=== PATIENT | male | born 1960 | race Caucasian/White ===

== ENCOUNTER 2017-11-24 06:32 | Day surgery (SDC) | payer MEDICARE ==
[~2017-11-24] VITALS: Ht 172.7 cm; Wt 63.5 kg
[~2017-11-24 06:32] MED LIST: EQL IBUPROFEN200 MG PO; FLEXERIL PO; PROMETHAZINE HC50 MG PO; TRAMADOL HCL50 MG PO; TYLENOL 500MG TAB PO; ZESTRIL10 M1 PO
[2017-11-24 07:58] VITALS: BP 127/78
[2017-11-24] MEDS ORDERED: TRAMADOL HCL50 MG PO (08:22)
== END 2017-11-24 09:07 | disposition home or self-care (01) ==
LOC: ORM 06:32
PROVIDERS: ATTEND Anesthesiology Pain Medicine
PROC: 3E0T3BZ Introduction of Anesthetic Agent into Peripheral Nerves and Plexi, Percutaneous Approach (ICD-10-PCS; principal; 2017-11-24)
PROC: 3E0T33Z Introduction of Anti-inflammatory into Peripheral Nerves and Plexi, Percutaneous Approach (ICD-10-PCS; 2017-11-24)
PROC: BR141ZZ Fluoroscopy of Cervical Facet Joint(s) using Low Osmolar Contrast (ICD-10-PCS; 2017-11-24)
DX: M54.2 Cervicalgia (principal); M47.812 Spondylosis without myelopathy or radiculopathy, cervical region

== ENCOUNTER 2017-12-08 07:45 | Day surgery (SDC) | payer MEDICARE ==
[~2017-12-08] VITALS: Ht 172.7 cm; Wt 63.5 kg
[2017-12-08 10:24] VITALS: BP 152/88
== END 2017-12-08 09:15 | disposition home or self-care (01) ==
LOC: ORM 07:45
PROVIDERS: ATTEND Anesthesiology Pain Medicine
PROC: 3E0T33Z Introduction of Anti-inflammatory into Peripheral Nerves and Plexi, Percutaneous Approach (ICD-10-PCS; principal; 2017-12-08)
PROC: 3E0T3BZ Introduction of Anesthetic Agent into Peripheral Nerves and Plexi, Percutaneous Approach (ICD-10-PCS; 2017-12-08)
PROC: BR141ZZ Fluoroscopy of Cervical Facet Joint(s) using Low Osmolar Contrast (ICD-10-PCS; 2017-12-08)
DX: M54.2 Cervicalgia (principal); M47.812 Spondylosis without myelopathy or radiculopathy, cervical region

== ENCOUNTER 2018-02-02 08:51 | Day surgery (SDC) | payer MEDICARE ==
[~2018-02-02] VITALS: Ht 172.7 cm; Wt 61.2 kg
[2018-02-02 10:54] VITALS: BP 117/75
[2018-02-15] MEDS ORDERED: IMITREX100 M1 PO (10:09)
[2018-02-15] MEDS ORDERED: ELAVIL (10:09)
[2018-02-15] MEDS ORDERED: MAGNESIUM400 M1 (10:10)
[2018-02-15] MEDS ORDERED: EQL IBUPROFEN200 M1 PO (10:38)
[2018-02-15] MEDS ORDERED: FLEXERIL PO (10:40)
[2018-02-15] MEDS ORDERED: PROMETHAZINE50 MG PO (10:41)
== END 2018-02-02 10:35 | disposition home or self-care (01) ==
LOC: ORM 08:51
PROVIDERS: ATTEND Anesthesiology Pain Medicine
PROC: 3E0T33Z Introduction of Anti-inflammatory into Peripheral Nerves and Plexi, Percutaneous Approach (ICD-10-PCS; principal; 2018-02-02)
PROC: 3E0T3BZ Introduction of Anesthetic Agent into Peripheral Nerves and Plexi, Percutaneous Approach (ICD-10-PCS; 2018-02-02)
PROC: BR161ZZ Fluoroscopy of Lumbar Facet Joint(s) using Low Osmolar Contrast (ICD-10-PCS; 2018-02-02)
DX: M54.5 Low back pain (principal)

== ENCOUNTER 2018-03-09 06:58 | Day surgery (SDC) | payer MEDICARE ==
[~2018-03-09] VITALS: Ht 172.7 cm; Wt 63.5 kg
[~2018-03-09 06:58] MED LIST changes: +ELAVIL; +EQL IBUPROFEN200 M1 PO; +IMITREX100 M1 PO; +MAGNESIUM400 M1; +PROMETHAZINE50 MG PO
[2018-03-09 13:28] VITALS: BP 132/76
== END 2018-03-09 09:28 | disposition home or self-care (01) ==
LOC: ORM 06:58
PROVIDERS: ATTEND Anesthesiology Pain Medicine
PROC: 3E0T3TZ Introduction of Destructive Agent into Peripheral Nerves and Plexi, Percutaneous Approach (ICD-10-PCS; principal; 2018-03-09)
PROC: BR161ZZ Fluoroscopy of Lumbar Facet Joint(s) using Low Osmolar Contrast (ICD-10-PCS; 2018-03-09)
DX: M54.5 Low back pain (principal)

== ENCOUNTER 2018-03-23 05:50 | Day surgery (SDC) | payer MEDICARE ==
[~2018-03-23] VITALS: Ht 172.7 cm; Wt 65.8 kg
[2018-03-23 07:35] VITALS: BP 148/99
[2018-03-23] MEDS ORDERED: TRAMADOL HCL50 MG PO (08:02)
== END 2018-03-23 08:10 | disposition home or self-care (01) ==
LOC: ORM 05:50
PROVIDERS: ATTEND Anesthesiology Pain Medicine
PROC: 3E0T3TZ Introduction of Destructive Agent into Peripheral Nerves and Plexi, Percutaneous Approach (ICD-10-PCS; principal; 2018-03-23)
PROC: BR161ZZ Fluoroscopy of Lumbar Facet Joint(s) using Low Osmolar Contrast (ICD-10-PCS; 2018-03-23)
DX: M54.5 Low back pain (principal); M46.96 Unspecified inflammatory spondylopathy, lumbar region